=== PATIENT | male | born 1960 | race Caucasian/White ===

== ENCOUNTER 2022-05-22 00:31 | Day surgery (SDC) | payer OTHER, SELFPAY ==
[2022-04-03 14:04] VITALS: BMI 26.6
[2022-05-13 14:35] VITALS: BMI 26.6
[2022-05-22 07:03] VITALS: BP 132/88; PULSE 75; RESP 18; TEMP 36.4; O2SAT 97
[2022-05-22] MEDS: LACTATED RINGERS 1,000 ML 150 ML IV CONT (07:05)
--- NOTE | 2022-05-22 08:13 | PM.HPGS ---
History of Present Illness History of Present Illness Consent: Risks, benefits, and alternatives have been discussed and questions answered. Patient agrees to proceed with procedure. Chief complaint: neoplasm screening Narrative: Rex Archuleta is a 61 year old male Presents for screening colonoscopy. Patient's current weight appetite and bowel movements are normal. Patient denies abdominal pain. He has had no bleeding. Family history is noncontributory. Patient's last colonoscopy 2010 was unremarkable. Patient presents today for neoplasia screening colonoscopy. Review of Systems Review of Systems: Review of systems noncontributory. [facility] Family History Family History Father Cerebrovascular accident Mother Hypertension Social History Social History Smoking status: Never smoker Alcohol intake: never Substance use: never Substance use type: does not use Living arrangements: with family Spiritual care concerns: No Meds Home Medications and Allergies Home Medications Medication Instructions Recorded Confirmed Type atorvastatin 40 mg tablet 40 mg PO DAILY 07/11/19 05/22/22 History aspirin 81 mg tablet,delayed 81 mg PO DAILY 11/28/20 05/22/22 History release (Adult Low Dose Aspirin) multivitamin 1 tablet PO DAILY 11/28/20 05/22/22 History Allergies Allergy/AdvReac Type Severity Reaction Status Date / Time No Known Allergies Allergy Unknown Verified 05/22/22 07:02 Vital Signs Vital Signs - 24 hr 05/22/22 07:03 Temperature 97.6 F Pulse Rate 75 Respiratory Rate 18 Blood Pressure 132/88 Pulse Oximetry 97 Oxygen Delivery Room Air Exam Narrative: Physical exam reveals patient to be alert. Vital signs stable. HEENT exam is unremarkable. Patient is anicteric. Lungs are clear to auscultation and percussion. Heart is without murmur or extra sounds. Abdomen bowel sounds present soft nontender with no organomegaly. Digital external rectal exam is normal. Assessment and Plan Assessment and plan (1) Encounter for screening colonoscopy: Code(s): Z12.11 - Encounter for screening for malignant neoplasm of colon Status: Acute Assessment and Plan: Patient presents today for screening colonoscopy. He appears to be at average risk for colon polyps.
--- NOTE | 2022-05-22 08:15 | WPDANESEPPF ---
Anes - Initial Pre Proc Eval Procedure: Operation Date: 05/22/22 08:30 Proposed Procedures p Screening Colonoscopy - Rashi Montenegro MD Date/Time: 05/22/22 08:15 Surgeon: Rashi Montenegro MD Pre Op Diagnosis: neoplasm screening Patient Data Age: 61 Gender: M Height: 1.83 m Weight: 89.1 kg Last Vital Signs Temp 97.6 F 05/22/22 07:03 Pulse 75 05/22/22 07:03 Resp 18 05/22/22 07:03 BP 132/88 05/22/22 07:03 Pulse Ox 97 05/22/22 07:03 O2 Del Method Room Air 05/22/22 07:03 Allergies Allergy/AdvReac Type Severity Reaction Status Date / Time No Known Allergies Allergy Unknown Verified 05/22/22 07:02 Home Medications Medication Instructions Recorded Confirmed Type atorvastatin 40 mg tablet 40 mg PO DAILY 07/11/19 05/22/22 History aspirin 81 mg tablet,delayed 81 mg PO DAILY 11/28/20 05/22/22 History release (Adult Low Dose Aspirin) multivitamin 1 tablet PO DAILY 11/28/20 05/22/22 History Patient hx anesthesia problems: none Family hx anesthesia problems: none Results Review: All pre-operative results and documents have been reviewed as part of the pre-operative evaluation. [facility] Family History Family History Father Cerebrovascular accident Mother Hypertension Social History Social History Smoking status: Never smoker Alcohol intake: never Substance use: never Substance use type: does not use Living arrangements: with family Spiritual care concerns: No Anes - Eval Final PreProcedure Day of Procedure 05/22/22 08:15 Patient weight: normal Heart: regular rate and rhythm Lungs: clear to auscultation Airway: Mallampati scale class II Neurological: alert and oriented Last oral intake: >/= 8 hours ASA classification: II Emergent: no Anesthetic plan: proceed Anesthesia type and monitoring: general GIVS and standard monitoring Results Review: All pre-operative results and documents have been reviewed as part of the pre-operative evaluation. Informed Consent: The patient's anesthetic plan and its attendant risks and benefits were discussed with the patient/family/POA. Questions were solicited and answers provided to the satisfaction of the patient/family/POA.
[2022-05-22] MEDS: SIMETHICONE ORAL SUSPENSION 20 MG/0.3 ML 30 ML BOTTLE 0.6 ML IRRIGATION (08:26)
[2022-05-22 08:37] VITALS: BP 110/74; PULSE 59; RESP 18; O2SAT 97
[2022-05-22 08:47] VITALS: BP 117/78; PULSE 69; RESP 18; O2SAT 97
[2022-05-22 08:49] VITALS: BP 131/86; PULSE 61; RESP 20; O2SAT 98
== END 2022-05-22 09:11 | disposition home or self-care (01) ==
PROVIDERS: PCP Student in an Organized Health Care Education/Training Program; Visit Provider Internal Medicine Gastroenterology
PROC: 0DJD8ZZ Inspection of Lower Intestinal Tract, Via Natural or Artificial Opening Endoscopic (ICD-10-PCS; CPT 45378; principal; 2022-05-22 08:30)
DX: Z12.11 Encounter for screening for malignant neoplasm of colon (principal); K64.8 Other hemorrhoids; K57.30 Diverticulosis of large intestine without perforation or abscess without bleeding; Z79.82 Long term (current) use of aspirin
CPT/HCPCS: 45378; J2704; J7120

== ENCOUNTER 2024-10-08 11:33 | Emergency (ER) | payer OTHER, SELFPAY ==
--- NOTE | 2024-10-08 11:34 | ED_ITS ---
HPI - URI/Sore Throat General Chief Complaint: Upper Respiratory Infection Stated Complaint: Sinus Infection Symptoms Time Seen by Provider: 10/08/24 11:34 Source: patient Mode of arrival: ambulatory Limitations: no limitations History of Present Illness HPI Narrative: Rex is a 64-year-old male patient presenting to the clinic today with complaints of possible sinus infection x1 month. He reports he has had a lot of left-sided sinus drainage and pressure. Denies any cough, fever, or chills. Does also have some left-sided cervical lymph node swelling that is tender. Has tried using Flonase and Sudafed. Related Data Home Medications ?Medication ?Instructions ?Recorded ?Confirmed ?Last Taken ?Type atorvastatin 40 mg tablet 40 mg PO DAILY 07/11/19 05/22/22 Unknown History aspirin 81 mg tablet,delayed 81 mg PO DAILY 11/28/20 05/22/22 Unknown History release (Adult Low Dose Aspirin) multivitamin 1 tablet PO DAILY 11/28/20 05/22/22 Unknown History Allergies Allergy/AdvReac Type Severity Reaction Status Date / Time No Known Allergies Allergy Unknown Verified 10/08/24 11:41 Review of Systems Review of Systems: Pertinent positives per HPI. Patient denies any fever, chills, rash, headache, visual changes, dizziness, cough, shortness of breath, chest pain, palpitations, nausea, vomiting, diarrhea, constipation, abdominal pain, or any urinary issues. [facility] Family History Family History Father Cerebrovascular accident Mother Hypertension Social History Social History Smoking status: Never smoker Alcohol intake: never Substance use: never Substance use type: does not use Living arrangements: with family Spiritual care concerns: No Comments At the time of my signature, I reviewed and agree with the nursing past medical, surgical, social, and family history. There is no relevant family history pertinent to the patient complaint. Exam Narrative: General: Well-developed, well nourished, in no apparent distress Head: Normocephalic, atraumatic Eyes: Pupils equally round and reactive to light bilaterally, EOM intact, sclera and conjunctive clear, no discharge, lids normal Ears: TMs intact and clear, ear canals clear, no drainage, grossly hearing normal. Nose: Nares patent, yellow nasal discharge, moderate inflammation, left maxillary sinus tenderness. Mouth: Oral pharynx without lesions or masses, good dentition, MMM. Neck: Supple, trachea midline, enlargement of left anterior cervical node, no thyroid masses or goiter palpable. Cardio: Regular rate and rhythm, s1 and s2 normal, no murmur appreciated. Resp: Clear to auscultation bilaterally, no rhonchi, rales, wheezing or rubs Course Course Emergency Course: Portions of this record may have been created with voice recognition software. Level of Care: Express Care Visit Vital Signs Vital signs: Vital Signs Temperature 36.9 C 10/08/24 11:41 Pulse Rate 77 10/08/24 11:41 Respiratory Rate 14 10/08/24 11:41 Blood Pressure 179/95 H 10/08/24 11:41 Pulse Oximetry 98 10/08/24 11:41 Oxygen Delivery Room Air 10/08/24 11:41 Temperature 36.9 C 10/08/24 11:41 Pulse Rate 77 10/08/24 11:41 Respiratory Rate 14 10/08/24 11:41 Blood Pressure 179/95 H 10/08/24 11:41 Pulse Oximetry 98 10/08/24 11:41 Oxygen Delivery Room Air 10/08/24 11:41 Vital signs reviewed MDM - URI/Sore Throat MDM Narrative Medical decision making narrative: At the time of visit patient is resting comfortably on the exam table. Patient appears to be nontoxic. Plan: I suspect patient has left-sided sinusitis with left cervical lymphadenopathy. Prescription for Augmentin and prednisone was sent to the pharmacy. Discussed with the patient that his blood pressure was elevated in the clinic today and he needs this followed up with his primary care provider. Also recommend getting ultrasound of cervical lymphadenopathy if the antibiotics do not take care of his symptoms. Supportive measures were discussed with the patient and they voiced understanding discharge instructions and agrees to treatment plan. Return precautions reviewed Differential Diagnosis Differential diagnosis: Likely upper respiratory infection, otitis media, sinusitis, viral infection, bronchitis, influenza, pharyngitis and other (COVID) Discharge Plan Discharge Clinical Impression: Acute bacterial sinusitis, LAD (lymphadenopathy) of left cervical region Patient Disposition: Home, Self-Care Condition: Stable Instructions: Antibiotic Form, Sinusitis (ED), Lymphadenopathy (ED) Additional Instructions: Take prescription medications only as prescribed-prednisone and Augmentin Increase fluids and stay well hydrated Tylenol/motrin for pain/fever Flonase and OTC antihistamines as directed Vicks vapor rub to open sinuses Sinus rinses for congestion Cepacol spray, cough drops, throat lozenges, warm tea with honey/lemon, gargle salt water to soothe throat BRAT diet for diarrhea Clear liquids x 24 hours then advance as tolerated for nausea/vomiting Go to the ED if you develop a worsening in your condition- high fever not controlled by Tylenol or Motrin, dehydration, weakness, lethargy, shortness of breath, or chest pain. Follow up with your PCP in 3-5 days if symptoms persist. You have an elevated blood pressure in the clinic today and I recommend follow- up with primary care physician to have this reevaluated within the next week if symptoms persist. [place] Heart guidelines state that normal blood pressure is 120/80 or less. Anything over 120/80 is considered elevated and should be monitored. You may need to decrease you salt intake and eat a heart healthy diet to help lower you blood pressure, other treatments would include decreasing stress, weight loss, stop caffeine, and quit smoking. Your primary care provider can determine whether you need to start antihypertensive medications. Untreated high blood pressure can cause dizziness, headaches, visual changes, blindness, kidney failure, stroke, heart attack, and male impotence. Patient Language: Tanzanian Prescriptions: New prednisone 20 mg tablet 40 mg PO DAILY 5 Days Qty: 10 0RF amoxicillin-pot clavulanate 875-125 mg tablet 1 tablet PO Q12H 10 Days Qty: 20 0RF No Action atorvastatin 40 mg tablet 40 mg PO DAILY aspirin [Adult Low Dose Aspirin] 81 mg tablet,delayed release (DR/EC) 81 mg PO DAILY multivitamin Tablet 1 tablet PO DAILY Follow-up/Referrals: UNKNOWN,DOCTOR [Non-Staff] - Time of Disposition: 11:47 Quality NIHSS Nursing Documentation ED NIHSS nursing documentation: reviewed/agree
[2024-10-08 11:41] VITALS: BP 179/95; PULSE 77; RESP 14; TEMP 36.9; O2SAT 98
== END 2024-10-08 11:51 | disposition home or self-care (01) ==
PROVIDERS: Emergency Provider Nurse Practitioner Family
DX: J01.90 Acute sinusitis, unspecified (principal); B96.89 Other specified bacterial agents as the cause of diseases classified elsewhere; R59.0 Localized enlarged lymph nodes
CPT/HCPCS: 99213; G0463

== ENCOUNTER 2024-11-24 16:26 | Outpatient (CLI) | payer OTHER, SELFPAY ==
--- NOTE | ~2024-11-24 | US_ITS ---
EXAMINATION: US soft tissue head and neck DATE: 11/24/2024 17:06 INDICATION: Left neck palpable bulbs TECHNIQUE: Multiple grayscale and Doppler ultrasound images of the left submandibular region of eve rn were obtained. COMPARISON: None FINDINGS/IMPRESSION: The palpable abnormality corresponds to a 2.9 x 1.3 x 1.6 cm mass with focal lobular hypoechoic regio ns by echogenic septations and with a central vascular hilum. Given the reported location a nd appearance would favor the left submandibular gland over an enlarged lymph node. Reviewed, dictated and finalized at location A.
--- OUTSIDE RECORDS SUMMARY | 2024-11-24 16:33 | XMS_ITS | Clinical Summary ---
Author Organization [facility] Address [address] [place] [address] Care Team Providers Care Clothes Marker Name Role Phone Zander Foster DO Primary Care Provider + Allergies No known active allergies Medications atorvastatin 80 MG tablet Take 80 mg by mouth daily. 08/24/2021 Active magnesium oxide 250 MG tablet Take 1 tablet by mouth daily. Active NON FORMULARY Take 1 tablet by mouth daily. Noelle Bio gest Active meloxicam 7.5 MG tabletIndication s:Arthritis Take 1 tablet (7.5 mg total) by mouth in the morning. 90 tablet 1 12/02/2021 Active Active Problems Problem Noted Date Diagnosed Date Family history of stroke 10/31/2021 JONNIE on CPAP 01/31/2021 Renal cyst 09/10/2018 Tricuspid valve insufficiency 09/10/2018 Erectile dysfunction 08/15/2016 RBBB 06/22/2015 Hypercholesterolemia 06/20/2014 Snoring 05/26/2014 PVCs (premature ventricular contractions) 2013 Family history of ischemic h eart disease and other diseases of the circulatory system 05/12/2014 Palpitations 05/12/2014 Immunizations Immunization Administration Dates Next Due Hepatitis A (Havrix [address]) 06/16/2022,2021 Influenza Adult (Generic) 06/22/2023,06/16/2022 MODERNA COVID-19 BIVALENT (12+), MRNA, LNP-S, PF 04/10/2022 MODERNA COVID-19 (12+) MRNA, LNP-S, PF, 100 MCG/ 0.5 ML DOSE 04/10/2022 MODERNA COVID-19 (COURT MAGISTRATE MICHAEL JHON), MRNA, LNP-S, PF, 50 MCG/ 0.25 ML DOSE 11/14/2021,06/05/2021 Tdap (Generic) 12/04/2021 Family History Medical History Relation Comments Stroke Father Heart Disease Mother Relation Status Comments Father Alive Mother Social History Tobacco Use Types Packs/Day Years Used Date Smoking Tobacco: Never Smokeless Tobacco: Never Alcohol Use Standard Drinks/Week Comments Yes 1.7 (1 standard drink = 0.6 oz p ure alcohol) a couple times a month PHQ-2 Answer Date Recorded PHQ-2 Score - If the patient scores above 3, please move on to questions 3-9 0 10/31/2021 Sex and Gender Information Value Date Recorded Sex Assigned at Not on file Legal Sex Male 4:52 PM CDT Gender Identity Not on file Sexual Orientation Not on file Last Filed Vital Signs Vital Sign Reading Time Taken Comments Blood Pressure 136/70 12/02/2021 7:09 AM CDT Pulse 66 12/02/2021 7:09 AM CDT Temperature 36.7 C (98 F) 12/02/2021 7:09 AM CDT Respiratory Rate 16 12/02/2021 7:09 AM CDT Oxygen Saturation 96% 12/02/2021 7:09 AM CDT Inhaled Oxygen Concentration - - Weight 92.4 kg (203 lb 9.6 oz) 12/02/2021 7:09 A M CDT Height 182.9 cm (6') 12/02/2021 7:09 AM CDT Body Mass Index 27.61 12/02/2021 7:09 AM CDT Plan of Treatment Health Maintenance Due Date Last Done Comments Annual Physical 1965 Hepatitis C 1980 Pneumococcal Vaccine: 50+ Years (1 of 2 - PCV) 1981 Zoster Vaccines (1 of 2) 2012 RSV Immunization or 60+ Years (1 - Risk 60-74 years 1-dose series) 2022 COVID-19 Vaccine ( - season) 2024 06/22/2023, 04/10/2022, 04/10/2022, Additional history exists PHQ-2 (Physician [place]) 07/13/2024 DTaP, Tdap and Td Vaccines (2 - Td or Tdap) 12/05/2031 12/04/2021 Colorectal Cancer Screening Colonoscopy (10 Years) 05/22/2032 05/22/2022 Meningococcal B Vaccine Aged Out No l onger eligible based on patient's age to complete this topic Meningococcal Vaccine Aged Out No emma stef eligible based on patient's age to complete this topic RSV Immunizations Under 20 Months Aged Out No longer eligible based on patient's age to complete this topic Procedures Procedure Name Priority Date/Time Associated Diagnosis Comments COLONOSCOPY GENERIC (SCAN ORDER) 05/22/2022 from Last 3 Months or Most Recently Relevant to Health Maintenance Results * COLONOSCOPY GENERIC (05/22/2022) 05/22/2022 [facility] Scanned SCANNING Final Resu lt from Last 3 Months or Most Recently Relevant to Health Maintenance Insurance [facility] Care Teams Clothes Marker Relationship Specialty Start Date End Date Zander Foster DO [address] [place] [id number] PCP - General FAMILY PRACTICE 10/31/21
--- OUTSIDE RECORDS SUMMARY | 2024-11-24 16:33 | XMS_ITS | Patient Health Record ---
Author Organization [facility] Address [address] [place] [address] Care Team Providers Care Microwave Technician Name Role Phone Zander Foster Primary Care Provider Phu Villanueva Unavailable [phone] ALLERGIES No Known Allergies REASON FOR REFERRAL No Information MEDICATIONS Medication SIG (Take, Route, Fr equency, Duration) Notes Start Date End Date Status Magnesium Active Probiotic Active Atorvastatin Calcium Active SOCIAL HISTORY Sex Assigned At : Social History Observation Description Sex Assigned At Unknown VITAL SIGNS Height 72 in 08/02/2024 Weight 194 lbs 08/02/2024 BMI 26.31 kg/m2 08/02/2024 Encounters Encounter Location Date Provider Diagnosis . [facility] [address] [place] [address] 08/02/2024 Phu Munguia Trigger finger, lef t middle finger M65.332 ASSESSMENTS Encounter Date Diagnosis Assessment Notes Treatment Notes Treatment Clinical Notes 08/02/2024 Trigger finger, left middle finger (ICD-10 - M65.332) Rex has a trigger finger of the left middle finger. It is a green 3. He has not had any treatment at this point. We discussed splinting at night. He is going to purchase a splint online to help keep the finger extended and prevent nighttime triggering. Additionally, we talked about the merits of a cortisone injection in the A1 chuy today. Written consent was obtained for left middle finger A1 chuy cortisone injection. We will see him back on a p.r.n. basis based on how long this lasts. PLAN OF TREATMENT No Information Insurance Providers Payer Name Payer Address Payer Phone Subscriber Number Group Number Insured Name Patient Relationship to Insured Coverage Start Date Coverage End Date [facility] [id number] [id number] [place] [phone] [id number] Rex Archuleta Self - patient is the insured MEDICAL (GENERAL) HISTORY Medical History History ICD Code arthritis Surgical History Surgery Date(Month/Year) gall bladder
--- OUTSIDE RECORDS SUMMARY | 2024-11-24 16:33 | XMS_ITS ---
Author Organization [facility] Address [address] [place] [address] Care Team Providers Care Sediment Remediation Consultant Name Role Phone Zander Foster Primary Care Provider Phu Villanueva Unavailable [phone] ALLERGIES No Known Allergies REASON FOR VISIT Left middle finger trigger finger MEDICATIONS Medication SIG (Take, Route, Fr equency, Duration) Notes Start Date End Date Status Magnesium Active Probiotic Active Atorvastatin Calcium Active VITAL SIGNS BMI 26.31 kg/m2 08/02/2024 Height 72 in 08/02/2024 Weight 194 lbs 08/02/2024 Encounters Encounter Location Date Provider Diagnosis [facility] [place] [address] [place] [address] 08/02/2024 Phu Munguia Trigger finger, lef t [...] how long this lasts. PLAN OF TREATMENT Next Appt Details Follow Up: prn, Reason: Procedure Notes * Category Sub-Category Detail Notes Trigger Finger Injection Procedure on the left hand, on the middle finger Technique The patient's hand w as placed on the examination table with the palm up. The palpable nodule was palpated on the flexor tendon, just distal to the A1 chuy. The skin was prepped with alcohol. A 25-gauge, 1 1/2-inch needle was inserted just superior to the A1 chuy, adjacent to the flexor tendon, angling inferiorly. Once under the chuy I injected a solution containing 0.25cc of 1% lidocaine without epinephrine and 0.5cc of celestone. The needle was removed and a sterile dressing was applied. The patient tolerated the procedure well.
== END 2024-11-24 16:27 | disposition home or self-care (01) ==
PROVIDERS: PCP Family Medicine; Visit Provider Otolaryngology
DX: R59.1 Generalized enlarged lymph nodes (principal)
CPT/HCPCS: 76536

== ENCOUNTER 2025-01-12 09:13 | Outpatient (CLI) | payer OTHER, SELFPAY ==
--- NOTE | ~2025-01-12 | CT_ITS ---
CT scan of the Neck Technique: 2.5 mm axial scans were obtained through the neck after intravenous administration of 75 c c Omnipaque 350. Coronal and sagittal reconstructions of the neck were obtained. Dose reduction techn ique was used on this scan by utilizing automated exposure control and iterative reconstruction techn ique. The dose-length product (DLP) was 490.54 mGy-cm. Clinical History: Sialoadenitis Findings: There is no evidence of any significant cervical lymphadenopathy. Several small, nonenlarged jugulo- digastric and posterior cervical lymph nodes are noted bilaterally. Parapharyngeal spaces appear norm al bilaterally. The parotid and submandibular glands appear normal. The pharyngeal mucosal spaces appear normal. No soft tissue masses are seen in the neck. The thyroid gland appears normal. Images of the lung apices reveal no abnormalities. There is bilater al ethmoid sinus disease. There is bilateral mucosal thickening in the maxillary sinuses. Mastoid air cells are clear. There is reversal normal cervical lordosis with advanced degenerative disc narrowing at C5-C6 and C6- C7. There is moderate degenerative disc narrowing at C3-C4 and C4-C5. Impression: No distinct salivary gland abnormality seen. Sinus disease, as above. Degenerative spondylosis of the cervical spine, as above. Reviewed, dictated and finalized at location . Impression: No distinct salivary gland abnormality seen. Sinus disease, as above. Degenerative spondylosis of the cervical spine, as above.
--- OUTSIDE RECORDS SUMMARY | 2025-01-12 09:20 | XMS_ITS | Patient Health Record ---
Author Organization [facility] Address [address] [place] [address] Care Team Providers Care Building Construction Inspector Name Role Phone Zander Foster Primary Care Provider Phu Villanueva Unavailable [phone] ALLERGIES No Known Allergies REASON FOR REFERRAL No Information MEDICATIONS Medication SIG (Take, Route, Fr equency, Duration) Notes Start Date End Date Status Magnesium Active Probiotic Active Atorvastatin Calcium Active VITAL SIGNS Height 72 in 08/02/2024 Weight 194 lbs 08/02/2024 BMI 26.31 kg/m2 08/02/2024 Encounters Encounter Location Date Provider Diagnosis [facility] [address] [place] [address] 08/02/2024 Phu Munguia Trigger finger, lef t middle finger M65.332 ASSESSMENTS Encounter Date Diagnosis Assessment Notes Treatment Notes Treatment Clinical Notes Section Notes 08/02/2024 Trigger finger, left middle finger [...] Insured Coverage Start Date Coverage End Date [facility] [address] [id number] [place] [phone] [id number] Rex Archuleta Self - patient is the insured MEDICAL (GENERAL) HISTORY Medical History History ICD Code arthritis Surgical History Surgery Date(Month/Year) gall bladder
--- OUTSIDE RECORDS SUMMARY | 2025-01-12 09:21 | XMS_ITS ---
Author Organization [facility] Address [address] [place] [address] Care Team Providers Care Human Resources Vice President Name Role Phone Zander Foster Primary Care Provider Phu Villanueva Unavailable [phone] ALLERGIES No Known Allergies REASON FOR VISIT Left middle finger trigger finger MEDICATIONS Medication SIG (Take, Route, Fr equency, Duration) Notes Start Date End Date Status Magnesium Active Probiotic Active Atorvastatin Calcium Active VITAL SIGNS BMI 26.31 kg/m2 08/02/2024 Height 72 in 08/02/2024 Weight 194 lbs 08/02/2024 Encounters Encounter Location Date Provider Diagnosis [facility] [place] [address] [place] [address] 08/02/2024 Phu Munguia Trigger finger, lef t [...] applied. The patient tolerated the procedure well. Progress Notes * Examination Category Sub-Category Detail Notes Category Not es Left Hand The patient is alert and oriented without obvious signs of distress. On evaluation of the hand/wrist, there are no overlying skin changes. There is no swelling or erythema. No prior incisions noted. There is triggering of the left middle finger at the A1 chuy. There is no real tenderness to palpation on examination. ROM: Wrist flexion 60 deg, wrist extension 60 deg. They are able to make a full composite fist. Strength: 5/5 in all planes Special tests: Tinels: Negative in the median nerve distribution Durkans: Negative NV exam: Radial pulse 2+ Median nerve distibution intact Ulnar nerve distribution intact Radial nerve distribution intact History and Physical Notes * HPI (History of Present Illness) Category Sub-Category Detail Notes Category Not es Daphne Goodman is a 64-y ear-old right-hand dominant male with chief complaint of left middle finger triggering which has been occurring now for several months. States that over this time. The triggering has become more frequent and has gotten to the point where he has to manually reduce the finger at night and in the morning when he wakes up. The pain associated with it is minimal at this point. He has not had any treatment to this point. He has never had any injections in his fingers. He is not wearing splints. 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
--- OUTSIDE RECORDS SUMMARY | 2025-01-12 09:21 | XMS_ITS | Clinical Summary ---
Author Organization [facility] Address [address] [place] [address] Care Team Providers Care Flagger Name Role Phone Zander Foster DO Primary [...] MCG/ 0.5 ML DOSE 04/10/2022 MODERNA COVID-19 (PSYCHOLOGY DEPARTMENT CHAIR MICHAEL JHON), MRNA, LNP-S, PF, 50 MCG/ [...] 04/10/2022, 04/10/2022, Additional history exists PHQ-2 (Physician [place]) 07/13/2024 DTaP, Tdap and Td Vaccines (2 [...] Most Recently Relevant to Health Maintenance Insurance [facility] Care Teams Flagger Relationship Specialty Start Date End Date Zander Foster DO [address] [place] [id number] PCP - General FAMILY PRACTICE 10/31/21
[2025-01-12 09:44] LABS: Estimated Glomerular Filt Rate > 60
== END 2025-01-12 09:14 | disposition home or self-care (01) ==
PROVIDERS: PCP Family Medicine; Visit Provider Otolaryngology
DX: K11.20 Sialoadenitis, unspecified (principal); R59.1 Generalized enlarged lymph nodes; J32.2 Chronic ethmoidal sinusitis; M47.892 Other spondylosis, cervical region
CPT/HCPCS: 70491; Q9967